=== PATIENT | female | born 1955 | race Caucasian/White ===

== ENCOUNTER 2016-11-20 10:29 | Day surgery (SDC) | payer BC ==
[~2016-11-20] VITALS: Ht 160 cm; Wt 104.6 kg
[~2016-11-20 10:29] MED LIST: ADVI200C9 PO; DIAZ10 PO; LORA10TA PO; METO50TA PO; SERT100 PO
[2016-11-20] MEDS ORDERED: IOHEXOL 350 MG/ML 100 ML BTL (for Cath Lab) OTHER ONE (10:30)
[2016-11-20] MEDS ORDERED: SERT-129 PO (11:36)
[2016-11-20] MEDS ORDERED: METO50TA PO (11:36)
[2016-11-20] MEDS ORDERED: CLAR10CA3 PO (11:36)
[2016-11-20] MEDS ORDERED: DIAZ5TAB PO (11:36)
[2016-11-20] MEDS ORDERED: ASPI81TA5 PO (11:36)
[2016-11-20 11:37] LABS: AUTOMATED NEUTROPHIL # 3.4 TH/MM3 (1.8-7.7); BASOPHIL # 0.1 TH/MM3 (0-0.2); BASOPHIL % 1.1 % (0.0-2.0); EOSINOPHIL # 0.2 TH/MM3 (0-0.4); EOSINOPHIL % 3.5 % (0.0-4.0); HEMATOCRIT 37.7 % (35.0-46.0); HEMO FLAGS DIFF FINAL; LYMPH % 25.8 % (9.0-44.0); LYMPHOCYTE # 1.5 TH/MM3 (1.0-4.8); MEAN CELL VOLUME 90.3 FL (80.0-100.0); MEAN CORPUSCULAR HEMOGLOBIN 30.4 PG (27.0-34.0); MEAN CORPUSCULAR HGB CONC 33.7 % (32.0-36.0); MONO % 11.1 % (0.0-8.0); NEUT % 58.5 % (16.0-70.0); PLATELET COUNT 192 TH/MM3 (150-450); RED BLOOD COUNT 4.17 MIL/MM3 (4.00-5.30); RED CELL DISTRIBUTION WIDTH 13.4 % (11.6-17.2); WHITE BLOOD COUNT 5.8 TH/MM3 (4.0-11.0)
[2016-11-20 11:50] LABS: APTT (PATIENT) 27.7 SEC (24.3-30.1); INTERNATIONAL NORMALIZED RATIO 0.9 RATIO; PROTHROMBIN TIME - PATIENT 10.4 SEC (9.8-11.6)
[2016-11-20 12:14] LABS: BICARBONATE 28.8 MEQ/L (21.0-32.0)
[2016-11-20] MEDS ORDERED: HEPARIN-NS/PF INJ 1,000 ML ONE (13:57)
[2016-11-20] MEDS ORDERED: SODIUM CHLORID 0.9% 500 ML INJ 500 ML ONE (13:59)
[2016-11-20] MEDS ORDERED: MIDAZOLAM HCL 5 MG/5 ML VIAL ONE ×2 (14:00→14:15)
[2016-11-20] MEDS ORDERED: diphenhydrAMINE HCL 50 MG/ML VIAL ONE (14:00)
--- NOTE | 2016-11-20 14:53 | CATHPROC ---
[employer] HIS Report Study Information Study Number Admission Scheduled Start Study Start [id number] Nov 20 2016 10:29AM 11/20/2016 Nov 20 2016 1:55PM [place] Service Cardiac Catheterization Admit Source Facility Department Other [facility] Physician and Clinical Staff Initial [employer] French [employer] Endy Aguilar,LETITIA Recorder Steffen Hernández RCIS(BS) Scrub Heike Murillo,RT(R) Procedures Performed Procedure Location (Site) Vessel Name Angiogram LV LV Ventricle Coronary Angiograms LCA Left Coronary Coronary Angiograms RCA Right Coronary L Heart Cath Equipment Time Consulting Systems Engineer Description Size Mfg Part Number Used/Scraped TRANSDUCER, TRUWAVE [id number] 14:03 CRAIN STARR * Used W/STOCKCOCK *[id number] 14:36 Exterity MEDICAL VASCADE, FR5 CLOSURE SYSTEM FR 5 Used *[id number] 534-548T *[id number] 534-520T *[id number] 534-552S *[id number] 14:03 e2e Materials INDUSTRIES PACK, CCL CUSTOM * Used *[id number] 14:03 e2e Materials PACER PEN, SKIN DUAL W/ RULER * Used *[id number] 14:03 inTarvo WIRE, 3MMJ .035 180CM 180CM Used *[id number] PROBE COVER, STERILE [id number] 14:03 Truist * Used ULTRASOUND W/ GEL *[id number] 14:03 NAMIC MANIFOLD, 4 PORT * Used *[id number] 14:03 NAMIC TUBING, HIGH PRESSURE 48" 48" Used *[id number] 14:03 NYCOMED OMNIPAQUE, 350 MG, 150ML 150ML [id number] Used [id number] 14:03 Kasumi-sou BLANKET,WARM AIR CCL * Used *[id number] 14:03 TERUMO MEDICAL SHEATH, FR5 TERUMO (10CM) FR 5 Used *[id number] History: Risk Factors Family History of Hypertension Dyslipidemia Previous AK Previous Heart Failure Premature CAD No No No No No Prior Valve Prior PCI Prior CABG Surgery No No No Cerebrovascular Peripheral Artery Chronic Lung On Dialysis Diabetes Disease Disease Disease No No No No No History: Symptoms/Diagnosis Selection Items SOB History: Stress Tests Stress or Imaging Studies Performed Yes Standard Exercise Stress Test No Stress Echo No Stress Test SPECT Stress Test SPECT Result Stress Test SPECT Ischemia Risk/Extent Yes Positive Intermediate Stress Test CMR No Cardiac CTA Coronary Calcium Score No No Labs Hgb (g/dl) Hct (%) WBC (l/cumm) Platelets (thousands) 11.60-17.00 35.00-51.00 4.00-11.00 150.00-450.00 12.7 37.7 5.8 192 Glucose (mg/dl) BUN (mg/dl) Creatinine (mg/dl) BUN:Creatinine (1:x) 74.00-106.00 7.00-18.00 0.50-1.30 10.00-20.00 103 16 0.8 20 Na (meq/l) K (meq/l) 136.00-145.00 3.50-5.10 138 4 INR (PTT:PT) 0.90-1.10 0.9 CPK-MB (ng/ML) 0.50-3.60 Not Drawn Medication Medication Total Dose (Bolus/Oral) Medication Total Dosage/Unit 1% XYLOCAINE 20 mL BENADRYL 50 mg VERSED 10 mg Medications (Bolus/Oral) Medication Time Given Dosage/Unit Administered By Reason BENADRYL 11/20/2016 2:06:00 PM 50 mg Ferlitto, Endy 50 mg BENADRYL given in lab by Endy Aguilar RN in Left Antecubital via Peripheral IV. Ordered by Sukhwinder Gomez. VERSED 11/20/2016 2:12:13 PM 2 mg Ferlitto, Endy 2 mg VERSED given in lab by Endy Agiular RN in Left Antecubital via Peripheral IV. Ordered by Sukhwinder Keane. VERSED 11/20/2016 2:14:00 PM 2 mg Ferlitto, Endy 2 mg VERSED given in lab by Endy Aguilar RN in Left Antecubital via Peripheral IV. Ordered by Sukhwinder Keane. VERSED 11/20/2016 2:16:00 PM 1 mg Ferlitto, Endy 1 mg VERSED given in lab by Endy Aguilar RN in Left Antecubital via Peripheral IV. Ordered by Sukhwinder Keane. 1% XYLOCAINE 11/20/2016 2:17:15 PM 20 mL Sukhwinder Parker 20 mL 1% XYLOCAINE given in lab by Sukhwinder Parker in Right Groin via Subcutaneous. Ordered by Sukhwinder Estes. VERSED 11/20/2016 2:22:00 PM 2 mg Ferlitto, Endy 2 mg VERSED given in lab by Endy Aguilar RN in Left Antecubital via Peripheral IV. Ordered by Sukhwinder Keane. VERSED 11/20/2016 2:26:00 PM 3 mg Ferlitto, Endy 3 mg VERSED given in lab by Endy Aguilar RN in Left Antecubital via Peripheral IV. Ordered by Sukhwinder Keane. Medication (Drip) Medication Time Given Dosage/Unit Concentration/Unit Diluent (ml) Solution IV Solutions 11/20/2016 1:55:26 PM 0 mL (IV) 500 NaCl .9 Patient arrived on IV Solutions in Left Antecubital via Peripheral IV. Pump/Drip Flow = 20 ml/hr usin g NaCl .9. Ordered by Sukhwinder Parker. Initial Case Assessment Cardiovascular HR Rhythm NIBP Chest Pain 85 SR 174/93 0 Edema Present Skin color Skin None Normal Warm Dry Circulatory - Right Pulses Dorsalis Pedis Femoral 1 1 Scale (0,1,2,3,4,d) Circulatory - Left Pulses Dorsalis Pedis Femoral 1 1 Scale (0,1,2,3,4,d) Circulatory - Lower Extremities Color Lower Right Color Lower Left Normal Normal Neurological State Oriented to time-place- Alert Moves all extremities person Respiration - General Respiration Rate SpO2 (%) (B/min) 19 97 Final Case Assessment Cardiovascular HR Rhythm NIBP Chest Pain 69 SR 147/80 0 Edema Present Skin color Skin None Normal Warm Dry Circulatory - Right Pulses Dorsalis Pedis Femoral 1 1 Scale (0,1,2,3,4,d) Circulatory - Left Pulses Dorsalis Pedis Femoral 1 1 Scale (0,1,2,3,4,d) Circulatory - Lower Extremities Color Lower Right Color Lower Left Normal Normal Neurological State Oriented to time-place- Alert Moves all extremities person Respiration - General Respiration Rate SpO2 (%) (B/min) 19 97 Chronological Log Time Study Chronological Log 13:55:04 Patient arrived via Bed. 13:55:05 Patient Name, D.O.B, / Armband Verified By R.N. 13:55:06 Consent signed by the physician and the patient and verified by the [facility] staff. 13:55:07 Pre-op and post- op instructions given; patient acknowledges understanding of instructions. 13:55:20 Patient has been NPO for Less than 6Hrs. 13:55:21 Skin Breakdown- 13:55:21 Patient Warmer Placed on the Table. 13:55:24 A # 20 IV was noted in the Antecubital (left). Grade = 0 Patient arrived on IV Solutions in Left Antecubital via Peripheral IV. Pump/Drip Flow = 20 ml/h r using NaCl .9. Ordered 13:55:26 by Sukhwinder Parker. 13:55:27 History and physical on the chart or being dictated. Assessment: Initial Case, HR=85 BPM, Rhythm=SR, LRNJ=791/93 mmhg, Chest Pain=0, Edema=None, Col or=Normal, Skin = Warm, Dry Right Pulses: Koko Ped=1, Femoral=1 Left Pulses: Koko Ped=1, Femoral=1 13:55:27 Lower Right Extremities: Color=Normal Lower Left Extremities: Color=Normal Neurological: State=Alert, Ox3, KIM Respiration: Resp=19 B/min, SpO2=97 % 13:56:00 MD arrived. Vitals capture started with the following parameters, Patient=Adult, Interval=3 min, Initial Pr trmbek=741 mmHg, 14:02:54 Deflation Rate=5 mmHg, Cuff placed on Left Ankle 14:03:37 Reference ECG taken 14:04:09 HR=88 bpm, DKWJ=594/85 mmhg, SpO2=96.0 %, Resp=18 B/min, Pain=0, Eris=10, Main=2 14:06:00 50 mg BENADRYL given in lab by Endy Aguilar, LETITIA in Left Antecubital via Peripheral IV. Or dered by Sukhwinder Parker. 14:06:40 HR=87 bpm, LQLR=163/93 mmhg, SpO2=97.0 %, Resp=14 B/min, Pain=0, Eris=10, Main=2 14:08:10 Bilateral groins prepped with 2% chlorhexidine, and draped after a 3 minute waiting time. 14:09:45 HR=82 bpm, KWAI=634/82 mmhg, SpO2=98.0 %, Resp=10 B/min, Pain=0, Eris=10, Main=2 14:12:13 2 mg VERSED given in lab by Endy Aguilar, RN in Left Antecubital via Peripheral IV. Order ed by Sukhwinder Parker. 14:12:41 HR=83 bpm, LPWJ=727/84 mmhg, SpO2=95.0 %, Resp=26 B/min, Pain=0, Eris=10, Main=2 14:14:00 2 mg VERSED given in lab by Endy Aguilar, RN in Left Antecubital via Peripheral IV. Order ed by Sukhwinder Parker. 14:15:43 HR=78 bpm, TZRK=493/86 mmhg, SpO2=99.0 %, Resp=20 B/min, Pain=0, Eris=10, Main=2 14:16:00 1 mg VERSED given in lab by Endy Aguilar, LETITIA in Left Antecubital via Peripheral IV. Order ed by Sukhwinder Parker. 14:16:59 Pressure channel 1 zeroed. Time Out. Correct patient, correct procedure, correct physician, power injector not loaded with contrast with surgical 14:17:13 team present. Time Out Concurred by MD and individual staff in procedure. 14:17:14 Case Start 14:17:15 20 mL 1% XYLOCAINE given in lab by Sukhwinder Parker in Right Groin via Subcutaneous. Ordered by Sukhwinder Parker. 14:18:39 HR=75 bpm, ZGOI=901/80 mmhg, SpO2=99.0 %, Resp=16 B/min, Pain=0, Eris=10, Main=2 14:20:16 Access site was Right Femoral Artery. 14:20:21 A SHEATH, FR5 TERUMO (10CM) FR 5 was advanced into the Fem Art (right) using the Percutaneo us technique. 14:21:41 HR=68 bpm, YHDT=206/72 mmhg, SpO2=98.0 %, Resp=16 B/min, Pain=0, Eris=10, Main=2 A PIGTAIL ANG. INFINITI CATHETER FR 5 was advanced over a wire. OMNIPAQUE, 350 MG, 150ML 150ML was used 14:21:54 for injections. 14:22:00 2 mg VERSED given in lab by Endy Aguilar, LETITIA in Left Antecubital via Peripheral IV. Order ed by Sukhwinder Parker. Recorded Pressure: LV, HR=68, Condition=Condition 1 14:23:20 (Left Ventricle) LV 226/11/19 14:23:41 The LV was injected at 10 cc/sec for a total of 30. OMNIPAQUE, 350 MG, 150ML 150ML used. 14:24:33 HR=72 bpm, ABHC=338/93 mmhg, SpO2=99.0 %, Resp=17 B/min, Pain=0, Eris=10, Main=2 Recorded Pressure: LV, Ao, HR=73, Condition=Condition 1 14:25:01 (Left Ventricle) LV 211/14/25, (Aorta) Ao 170/75/112 14:26:00 3 mg VERSED given in lab by Endy Aguilar RN in Left Antecubital via Peripheral IV. Order ed by Sukhwinder Parker. 14:26:26 Catheter was removed A JL 4.0 INFINITI CATHETER FR 5 was advanced over a wire. OMNIPAQUE, 350 MG, 150ML 150ML was us ed for 14:27:00 injections. 14:27:40 HR=71 bpm, HCGF=707/76 mmhg, SpO2=98.0 %, Resp=23 B/min, Pain=0, Eris=10, Main=2 14:29:30 The LCA was injected and visualized at various angles. OMNIPAQUE, 350 MG, 150ML 150ML used . 14:30:34 Catheter was removed A AR MOD INFINITI CATHETER FR 5 was advanced over a wire. OMNIPAQUE, 350 MG, 150ML 150ML was u sed for 14:30:40 injections. 14:30:44 HR=74 bpm, RITE=451/76 mmhg, SpO2=95.0 %, Resp=20 B/min, Pain=0, Eris=10, Main=2 14:31:47 The RCA was injected and visualized at various angles. OMNIPAQUE, 350 MG, 150ML 150ML use d. 14:32:43 Case End 14:33:46 HR=73 bpm, OQJD=972/71 mmhg, SpO2=97.0 %, Resp=21 B/min, Pain=0, Eris=10, Main=2 14:35:18 An injection in the Fem Art (right) was made through the SHEATH, FR5 TERUMO (10CM) FR 5. 14:35:32 VASCADE, FR5 CLOSURE SYSTEM FR 5 placement in the Fem Art (right) 14:35:55 Sterile dressing applied to site 14:35:56 No case complications noted. 14:35:57 Cine recording checked. 14:36:39 HR=69 bpm, NNXQ=966/80 mmhg, SpO2=96.0 %, Resp=20 B/min, Pain=0, Eris=10, Main=2 Assessment: Final Case, HR=69 BPM, Rhythm=SR, WJZX=163/80 mmhg, Chest Pain=0, Edema=None, [place] r=Normal, Skin = Warm, Dry Right Pulses: Koko Ped=1, Femoral=1 Left Pulses: Koko Ped=1, Femoral=1 14:38:02 Lower Right Extremities: Color=Normal Lower Left Extremities: Color=Normal Neurological: State=Alert, Ox3, KIM Respiration: Resp=19 B/min, SpO2=97 % 14:39:41 HR=68 bpm, RZHD=510/81 mmhg, SpO2=96.0 %, Resp=19 B/min, Pain=0, Eris=10, Main=2 14:42:13 Bedside Report will be given. 14:42:17 Contrast Scanned 14:42:19 A Left Heart Cath was performed. 14:42:43 HR=68 bpm, MXME=373/80 mmhg, SpO2=95.0 %, Resp=17 B/min, Pain=0, Eris=10, Main=2 14:45:43 HR=66 bpm, UOUG=969/77 mmhg, SpO2=97.0 %, Resp=17 B/min 14:48:44 AMDP=430/83 mmhg, Pain=0, Eris=10, Main=2 14:50:00 Patient moved to stretcher End Study - Contrast Media Used In Study Contrast Total Opened (mL) Total Used (mL) Total Wasted (mL) Omnipaque 60 60 0 End Study - Maximum Contrast Load Max Contrast Load (mL) 653.7 End Study - Radiation Exposure Fluoro Time (minutes) 2.3 End Study - Patient Disposition Complications Transferred To No Operating Room
--- NOTE | 2016-11-20 15:58 | EKG ---
Date Performed: 11/20/2016 Time Performed: 11:44:04 PTAGE: 61 years EKG: Sinus bradycardia Prolonged QT interval Borderline ECG PREVIOUS TRACING : 11/20/2016 @ 1144 DOCTOR: Nacho Kapadia Interpretating Date/Time 11/20/2016 15:57:33
--- NOTE | 2016-11-20 16:23 | MA ---
cc: SUKHWINDER PARKER DATE: 11/20/2016 INDICATION Unstable angina, class III angina, intermediate probability nuclear myocardial perfusion study. PROCEDURE PERFORMED 1. Retrograde heart catheterization with left ventriculography and selective coronary angiography. 2. Moderate sedation. ACCESS SITE Right femoral artery. EQUIPMENT USED 5-Australian pigtail catheter, 5-Australian JL-4 and AR modified coronary artery catheters. MEDICATION Versed IV. Fentanyl IV. CONTRAST Omnipaque 60 ccs. COMPLICATIONS None. BLOOD LOSS Less than 10 ccs. METHOD OF HEMOSTASIS Vascade closure. RESULTS A. HEMODYNAMICS Heart rate 69 beats per minute. Left ventricular end-diastolic pressure 14 mmHg. Left ventricle 210/14. Aorta 170/75/112. B. LEFT VENTRICULOGRAPHY Ejection fraction 65%. Wall motion normal. Mild mitral regurgitation. C. CORONARY ANGIOGRAPHY Left main coronary artery patent. Left anterior descending artery patent. ___ patent. Left circumflex artery patent. OM1 patent. Right coronary is a dominant vessel which is patent. PDA patent. PLV patent. DIAGNOSIS 1. Patent coronary arteries. 2. Well-preserved left ventricular systolic function. 3. Hypertrophic obstructive cardiomyopathy with ___ left ventricular outflow tract of 40 mmHg. DISPOSITION Ms. Chen will be monitored on telemetry after the procedure. We will continue therapy with beta-blockers. She will be discharged home later today. I will see her back for followup in our office after discharge. Sukhwinder Parker MD OQ/TLL /2:39 PM /3:56 PM
== END 2016-11-20 19:30 | disposition home or self-care (01) ==
LOC: HCAT 10:29 → HDIC 10:30 → HCAT 19:30
PROVIDERS: ATTEND Internal Medicine Interventional Cardiology
DX: I20.0 Unstable angina (principal); R94.39 Abnormal result of other cardiovascular function study; I42.1 Obstructive hypertrophic cardiomyopathy; Z79.82 Long term (current) use of aspirin
CPT/HCPCS: 80048; 85025; 85610; 85730; 93005; 93458; C1760; C1769; C1893; G0269; J1200; J1644; J2250; J7040; Q9967